=== PATIENT | male | born 1925 | race Caucasian/White ===

== ENCOUNTER → 2016-05-03 | Outpatient (CLI) | payer OTHER ==
--- NOTE | 2016-05-03 11:29 | MA ---
Diagnostic Digital Mammogram Right Breast With iCAD Analysis Clinical Indications: Postoperative follow up right breast cancer in an 89-year-old male. He has unde rgone resection in the anterior right breast with postbiopsy radiation. Technique: Standard cephalocaudal and mediolateral oblique projections of the right breast are obtai jasper. This examination is processed by the iCAD computer aided detection system. Comparison: November 13, 2015. Breast density: Type 2; 25 to 50%. Findings: CAD was reviewed. There has been decrease in the subareolar opacity consistent with surgica l excision. Skin thickening is seen which is presumably post radiation. No suspicious calcifications are identified. Impression: Benign post operative mammography, BI-RADS 2. Recommendation: Continued clinical follow up with mammographic screening as clinically directed. A verbal report was given to the patient. [facility] will send a result letter to the patient.
== END ==
LOC: FIMAGING 09:52
PROVIDERS: ATTEND Radiology Radiation Oncology
DX: Z08 Encounter for follow-up examination after completed treatment for malignant neoplasm (principal); Z85.3 Personal history of malignant neoplasm of breast
CPT/HCPCS: G0206

== ENCOUNTER 2016-12-31 19:25 | Inpatient (IN) | payer OTHER ==
[2016-12-31] MEDS ORDERED: ASPIRIN 325 MG TAB PO ONE (19:43)
[2016-12-31] MEDS ORDERED: ASPIRIN 81 MG CHEWABLE TAB ONE (19:46)
[2016-12-31 19:50] LABS: % IMMATURE GRANULYOCYTES 0.1 % (0.0-1.1); ABSOLUTE IMMATURE GRANULOCYTES 0.01 10^3/uL (0.00-0.10); ABSOLUTE NRBC COUNT 0.02 10^3/uL (0-0.01); ADD DIFF? NO; ADD MORPH? NO; ADD SCAN? NO; ATYPICAL LYMPHOCYTE FLAG 0 (0-99); FRAGMENT RBC FLAG 0 (0-99); HEMATOCRIT 41.3 % (40.0-51.0); HEMOGLOBIN 14.5 g/dL (13.7-17.5); LEFT SHIFT FLG 0 (0-99); LIPEMIA HEMOLYSIS FLAG 90 (0-99); MEAN CELL HEMOGLOBIN 33.6 pg (27.9-34.1); MEAN CELL HEMOGLOBIN CONCENTR. 35.1 g/dL (32.4-36.7); MEAN CELL VOLUME 95.8 fL (81.5-99.8); MEAN PLATELET VOLUME 9.2 fL (8.7-11.7); NRBC-AUTO% 0.3 % (0.0-0.2); PLATELET CLUMPS FLAG 0 (0-99); PLATELET COUNT 147 10^3/uL (150-400); RED BLOOD CELL COUNT 4.31 10^6/uL (4.40-6.38); RED CELL DISTRIBUTION WIDTH 13.7 % (11.5-15.2)
[2016-12-31] MEDS ORDERED: ASPIRIN 81 MG CHEWABLE TAB PO ONE (19:51)
[2016-12-31] MEDS ORDERED: LORazepam 2 MG/ML INJ IVP ONE (19:59)
--- NOTE | 2016-12-31 20:00 | CPEKG ---
Heart Rate: 78 RR Interval: 769 P-R Interval: 130 QRSD Interval: 116 QT Interval: 432 QTC Interval: 493 P [place]: 0 QRS [place]: 9 T Wave [place]: 243 EKG Severity - ABNORMAL ECG - EKG Impression: probable sinus rhythm EKG Impression: MULTIFORM VENTRICULAR PREMATURE COMPLEXES EKG Impression: NONSPECIFIC INTRAVENTRICULAR CONDUCTION DELAY EKG Impression: BORDERLINE R WAVE PROGRESSION, ANTERIOR LEADS EKG Impression: significant artifact Electronically Signed By: Meagan Talavera 31-Dec-2016 21:56:20
[2016-12-31 20:02] LABS: ANION GAP 18 mEq/L (8-16); CALCIUM 9.8 mg/dL (8.5-10.4); CARBON DIOXIDE 19 mEq/l (22-31); CHLORIDE 100 mEq/L (97-110); CREATININE 1.3 mg/dL (0.7-1.3); GLOMERULAR FILTRATION RATE 52; GLUCOSE 151 mg/dL (70-100); POTASSIUM 3.6 mEq/L (3.5-5.2); SODIUM 137 mEq/L (134-144)
--- NOTE | 2016-12-31 20:03 | EDPHY ---
H & P Time Seen by Provider: 12/31/16 19:46 HPI/ROS: CHIEF COMPLAINT: Chest pain HISTORY OF PRESENT ILLNESS: 89-year-old male with a history of hypertension presents with chest pain. Onset of severe left-sided chest pain at 2:00 p.m. today. The pain is constant and does not change with inspiration or with movement. Associated with shortness of breath. According to the family, he seemed asymptomatic until just prior to arrival. They were sitting at the dinner table celebrating his birthday, when he began appearing quite anxious and clutching his chest. He told them that he had severe chest pain and shortness of breath. The family brought him to the emergency department. No prior cardiac history. He has multiple recent stressors including the of his of 69 years and moving into assisted living 4 months ago. Family feels that this might be a factor in his presentation today. REVIEW OF SYSTEMS: Constitutional: No fever, no chills Eyes: No visual changes ENT: No sore throat Respiratory: No cough Gastrointestinal: No nausea, no vomiting, no abdominal pain Genitourinary: no dysuria Musculoskeletal: No leg pain or swelling Skin: No rash Neurological: No headache, no weakness Psychiatric: Situational depression Past Medical/Surgical History: Hypertension Shingles Social History: Smoking Status: Former smoker Physical Exam: General Appearance: Alert, quite anxious, appears in distress Eyes: Pupils equal and round, no conjunctival pallor or injection ENT, Mouth: Mucous membranes moist Neck: Normal inspection Respiratory: tachypneic, Lungs are clear to auscultation Cardiovascular: Regular rate and rhythm Gastrointestinal: Abdomen is soft and nontender Neurological: A&O, very hard of hearing, nonfocal exam Skin: Warm and dry, no rash Extremities: Nontender, no pedal edema Psychiatric: anxious Constitutional: Initial Vital Signs Heart Rate 81 12/31/16 19:28 Respiratory Rate 22 H 12/31/16 19:28 Blood Pressure 173/119 H 12/31/16 19:28 O2 Sat (%) 100 12/31/16 19:28 O2 Delivery Mode Room Air O2 (L/minute) 2 Allergies/Adverse Reactions: No Known Allergies Allergy (Verified 12/31/16 19:31) Home Medications: Medication Instructions Recorded Cephalexin [Keflex] 500 mg PO TID #21 cap 12/16/16 Amlodipine Besylate [Norvasc] 5 mg PO DAILY 12/31/16 Ipratropium/Albuterol [Duoneb (*)] 3 ml IH Q6 PRN 12/31/16 Sertraline HCl [Zoloft 25mg (*)] 25 mg PO DAILY 12/31/16 Medical Decision Making - Diagnostics EKG Interpretation: EKG interpreted by me reveals normal sinus rhythm, rate 78, poor R-wave progression, ST segment depression in leads V4 through V6. Imaging Results: Portable chest x-ray independently reviewed by me reveals a normal mediastinum, no infiltrate. ED Course/Re-evaluation: This patient presents with severe chest pain. Stat EKG reveals ST segment depression in leads V4 through V6. Aspirin 324 mg orally given. Stat chest x- ray is unremarkable. Morphine 2 mg IV given for chest pain. Because of significant associated anxiety, Ativan 0.5 mg IV given. He felt much better after these medications and chest pain nearly resolved. Initial troponin is normal and repeat EKG is unchanged. Concern for ACS. He will need further cardiac evaluation as an inpatient. The hospitalist service was consulted for admission. Differential Diagnosis: Differential diagnosis includes though it is not limited to pneumonia, pneumothorax, pulmonary embolism, aortic dissection, pericarditis, acute coronary syndrome. - Data Points Laboratory Results: Laboratory Results 12/31/16 19:40 01/01/17 04:14 Medications Given: Amlodipine Besylate (Norvasc) 5 mg PO DAILY [facility] Stop: 06/30/17 13:29 Last Admin: 01/01/17 13:41 Dose: 5 mg Aspirin (Aspirin) 81 mg PO DAILY [facility] Stop: 06/30/17 08:59 Last Admin: 01/01/17 09:51 Dose: 81 mg Atorvastatin Calcium (Lipitor) 40 mg PO DAILY [facility] Stop: 06/30/17 16:29 Last Admin: 01/01/17 17:42 Dose: 40 mg Cephalexin HCl (Keflex) 500 mg PO TID [facility] PRN Reason: Protocol Stop: 01/31/17 15:59 Last Admin: 01/01/17 15:54 Dose: 500 mg Nitroglycerin (Nitrostat) 0.4 mg SL Q5M PRN PRN Reason: Chest Pain Stop: 06/30/17 04:00 Last Admin: 01/01/17 04:06 Dose: 0.4 mg Sertraline HCl (Zoloft) 25 mg PO DAILY [facility] Stop: 06/30/17 13:29 Last Admin: 01/01/17 13:43 Dose: 25 mg Discontinued Medications Aspirin (Aspirin) 325 mg PO EDNOW ONE Stop: 12/31/16 19:44 Last Admin: 12/31/16 19:51 Dose: Not Given Aspirin (Aspirin) 324 mg PO EDNOW ONE Stop: 12/31/16 19:52 Last Admin: 12/31/16 19:52 Dose: 324 mg Lorazepam (Ativan Injection) 0.5 mg IVP EDNOW ONE Stop: 12/31/16 20:00 Last Admin: 12/31/16 20:03 Dose: 0.5 mg Morphine Sulfate (Morphine) 2 mg IVP EDNOW ONE Stop: 12/31/16 19:45 Last Admin: 12/31/16 19:48 Dose: 2 mg Potassium Chloride (Klor-Con) 20 meq PO ONCE ONE Stop: 01/01/17 15:15 Last Admin: 01/01/17 15:53 Dose: 20 meq Departure - Departure Disposition: [facility] Inpatient Acute Clinical Impression: Chest pain Qualifiers: Chest pain type: precordial pain Qualified Code(s): R07.2 - Precordial pain Condition: Fair
[2016-12-31 20:13] LABS: TROPONIN I 0.024 ng/mL (0.000-0.034)
[2016-12-31] MEDS ORDERED: ONDANSETRON DISINTEGRATING 4 MG TAB PO PRN (21:44)
[2016-12-31] MEDS ORDERED: ONDANSETRON 4 MG/2 ML VIAL IVP PRN (21:44)
[2016-12-31] MEDS ORDERED: ACETAMINOPHEN 325 MG TAB PO PRN (21:44)
--- NOTE | 2016-12-31 22:37 | GHP ---
[f rep st] HISTORY AND PHYSICAL DATE OF ADMISSION: 12/31/2016 HISTORY OF PRESENT ILLNESS: The patient is a very pleasant 89-year-old gentleman, who was at a day libertarian today when he developed some chest pain. When I speak with the patient further, it sounds like he was out for a walk today and he had some substernal chest pain that resolved with stopping. It might have radiated to his jaw. He did not get diaphoretic. He does not have a history of angina l type symptoms and has no known cardiac history other than hypertension. He then went to dinner to celebrate his birthday with his family and he was clutching his chest. He felt as if the room was cl osing in. He had a hard time seeing. He was brought outside. Ultimately, he then complained of fur ther chest pain that was severe upon arrival to the emergency department. When I speak to the patient, he denies fever, chills, cough. He describe the aforementioned chest pa in syndrome that is new for him. There was no coughing or difficulty swallowing. REVIEW OF SYSTEMS: Complete 10-point review of systems conducted and negative except as noted in the HPI. PAST MEDICAL HISTORY: 1. BPH. 2. Hypertension. 3. Osteoarthritis. 4. History of skin cancer. 5. Chronic osteoarthritis. 6. He has history of bilateral cataract surgery. FAMILY HISTORY: Parents . SOCIAL HISTORY: His 4 months ago. Walks with a cane. Rare alcohol. He did have a Margar tea today. ALLERGIES: No known drug allergies. MEDICATIONS: Amlodipine, simvastatin, tamsulosin. Waiting for further reconciliation. PHYSICAL EXAMINATION: VITAL SIGNS: Temp 36.9, blood pressure 173/119, pulse 81, breathing 20 times a minute, 100% on room air. GENERAL: No acute distress. HEENT: Sclerae anicteric. Oropharynx nick ar. Mucous membranes are moist. NECK: Supple without lymphadenopathy or JVD. LUNGS: Clear to aus cultation bilaterally. HEART: S1, S2 without murmurs. ABDOMEN: Soft, nontender, nondistended. LO WER EXTREMITIES: No edema. Calves nontender. SKIN: Multiple seborrheic keratoses, but no rash. N EUROLOGIC: Nonfocal. LABORATORY DATA: White count 7, hematocrit 41, platelets are 147,000. Sodium 137, potassium 3.6, ch loride 100, bicarb 19, he has chronically low bicarb, BUN 27, creatinine 1.3, glucose 151. Troponin is 0.24, this is the only troponin we have in the system. BNP is 903. Chest x-ray, interpreted by niranjan caceres, no acute cardiopulmonary disease. EKG, interpreted by me, shows sinus at 78, with normal axis and intervals. Appears to be a little bit of ST-elevation in V6, but it is isolated. There is nothing in V5 nor is there in I or L. There are no reciprocal changes. He has a bit of a wavy baseline. In general, it is a nonischemic EKG. I have discussed the case Dr. Dayana Quintanilla. ASSESSMENT AND PLAN: An 89-year-old gentleman who presents with chest pain, somewhat concerning for an anginal story. 1. Chest pain. I will cycle troponins, perform stress test in the morning. His indeterminate tropo russel is noted. His EKG is a little bit abnormal at baseline and with poor quality, so I am going to r epeat it now. 2. Hypertension. The patient is markedly hypertensive today. We will continue his medications. I will hold on p.r.n.'s at this time. 3. Hyperlipidemia. I will check a lipid panel in the morning. 4. Prophylaxis. Pharmacologic prophylaxis indicated if in the hospital longer than 24 hours. 5. Disposition. Observation status. Stress test tomorrow. /[id number]/MODL
--- NOTE | 2017-01-01 03:49 | CPEKG ---
Heart Rate: 73 RR Interval: 822 P-R Interval: 228 QRSD Interval: 120 QT Interval: 432 QTC Interval: 476 P [place]: 56 QRS [place]: 18 T Wave [place]: 183 EKG Severity - ABNORMAL ECG - EKG Impression: SINUS RHYTHM EKG Impression: FIRST DEGREE AV BLOCK EKG Impression: NONSPECIFIC INTRAVENTRICULAR CONDUCTION DELAY EKG Impression: ANTERIOR INFARCT, OLD Electronically Signed By: Austin Han 02-Jan-2017 19:04:22
[2017-01-01] MEDS ORDERED: NITROGLYCERIN 0.4 MG BTL SL PRN (04:01)
[2017-01-01 05:25] LABS: ANION GAP 10 mEq/L (8-16); CALCIUM 8.4 mg/dL (8.5-10.4); CARBON DIOXIDE 25 mEq/l (22-31); CHLORIDE 104 mEq/L (97-110); CHOLESTEROL 138 mg/dL (140-220); CHOLESTEROL/HDL RATIO 3.63 RATIO (1.00-4.97); CREATININE 1.1 mg/dL (0.7-1.3); GLOMERULAR FILTRATION RATE > 60; GLUCOSE 120 mg/dL (70-100); HIGH DENSITY LIPOPROTEIN 38 mg/dL (40-65); LDL/HDL RATIO 2.39 RATIO (1.00-3.64); LOW DENSITY LIPOPROTEIN 91 mg/dL (80-100); NON-HIGH DENSITY LIPOPROTEIN 100 mg/dL (90-129); POTASSIUM 3.3 mEq/L (3.5-5.2); SODIUM 139 mEq/L (134-144); TRIGLYCERIDE 45 mg/dL (40-150); VERY LOW DENSITY LIPOPROTEINS 9 mg/dL (8-25)
[2017-01-01] MEDS: ASPIRIN 81 MG CHEWABLE TAB PO SCH (09:51)
[2017-01-01] MEDS ORDERED: REGADENOSON 0.4 MG/5 ML SYR IVP ONE (10:20)
--- NOTE | 2017-01-01 13:08 | CPR ---
[f rep st] NONINVASIVE CARDIAC PROCEDURE REPORT PROCEDURE: Adenosine Cardiolite EKG portion. INDICATION: This is an 89-year-old patient who came in with chest pain with intermediate probability of coronary artery disease and, hence, it was decided to perform adenosine Cardiolite study. PROCEDURE: The patient had baseline EKG, which measured left axis deviation but otherwise normal. N onspecific T-wave changes were noted. Adenosine was given. No changes noted with adenosine. The pa tient's blood pressure remained stable between 120 to 140 over 70 to 80 mmHg. The patient remained a symptomatic through the procedure. CONCLUSION: Nondiagnostic EKG part of the adenosine Cardiolite study. /[id number]/MODL
[2017-01-01] MEDS ORDERED: IPRATROPIUM/ALBUTEROL 3 ML DEYVIAL IH PRN (13:30)
[2017-01-01] MEDS: amLODIPine BESYLATE 5 MG TAB PO SCH (13:41)
[2017-01-01] MEDS: SERTRALINE HCL 25 MG TAB PO SCH (13:43)
[2017-01-01] MEDS ORDERED: POTASSIUM CL 20 MEQ TAB PO ONE (15:14)
--- NOTE | 2017-01-01 15:36 | ASMTCMCOM ---
CM Note CM Note Notes: Reviewed chart re: d/c poc, pt's progress. Pt admitted w/ severe CP; underwent a nuc stress test today, results are pending. Pt lives alone, recently lost his (approx 4 mos ago). Anticipate pt will likely discharge home independently when stable. CM will cont to follow for potential needs. Date Signed: 01/01/2017 03:36 PM Electronically Signed By:Rocio Herny RN
[2017-01-01] MEDS: CEPHALEXIN 500 MG CAP PO SCH ×2 (15:54→22:28)
--- NOTE | 2017-01-01 16:10 | HOSPPROG ---
Hospitalist Progress Note Assessment/Plan: Chest pain - Trops neg x3, no further chest pain. Nuc stress abnormal with decreased uptake at septal wall, will need resting study in am. Cont ASA, add statin for now. LDL 91. Hypertension - Adequate control on Amlodipine, cont current regimen. Full code Dispo - change to inpt as will need further evaluation / cardiac risk stratification Subjective: Pt feels well. No more CP. He thinks his pain was caused by drinking a jackson. Denies SOB, cough or fevers. Resting comfortably. Objective: Vital Signs Temp Pulse Resp BP Pulse Ox 36.9 C 75 16 157/77 H 93 01/01/17 15:29 01/01/17 15:29 01/01/17 15:29 01/01/17 15:29 01/01/17 15:29 Laboratory Results 01/01/17 04:14 12/31/16 01/01/17 01/02/17 05:59 05:59 05:59 Intake Total 100 240 Output Total 400 725 Balance -300 -485 - Physical Exam Constitutional: no apparent distress Eyes: PERRL Ears, Nose, Mouth, Throat: moist mucous membranes Cardiovascular: regular rate and rhythym Respiratory: no respiratory distress, clear to auscultation Gastrointestinal: normoactive bowel sounds, soft, non-tender abdomen Skin: warm Musculoskeletal: full muscle strength Neurologic: AAOx3 Psychiatric: interacting appropriately ICD10 Worksheet Patient Problems: Problems Problem Status Onset Chest pain Acute [place] (acute kidney injury) Acute Colitis Acute Dehydration Acute Urinary retention Acute Urinary tract infection Acute
--- NOTE | 2017-01-01 16:14 | ASMTCMCOM ---
CM Note CM Note Notes: Amendment to 01/01/17 note - Pt lives at [facility] in [place]. Date Signed: 01/01/2017 04:13 PM Electronically Signed By:Rocio Henry RN
[2017-01-01] MEDS: ATORVASTATIN CALCIUM 40 MG TAB PO SCH (17:42)
[2017-01-02 04:08] LABS: POTASSIUM 3.3 mEq/L (3.5-5.2)
[2017-01-02] MEDS ORDERED: POTASSIUM CL 20 MEQ TAB PO ONE (08:48)
[2017-01-02] MEDS: ATORVASTATIN CALCIUM 40 MG TAB PO SCH (08:55)
[2017-01-02] MEDS: amLODIPine BESYLATE 5 MG TAB PO SCH (08:55)
[2017-01-02] MEDS: SERTRALINE HCL 25 MG TAB PO SCH (08:55)
[2017-01-02] MEDS: ASPIRIN 81 MG CHEWABLE TAB PO SCH (08:55)
[2017-01-02] MEDS: CEPHALEXIN 500 MG CAP PO SCH ×2 (08:55→18:11)
[2017-01-02 11:26] VITALS: O2SAT 96
--- NOTE | 2017-01-02 13:44 | ASMTCMCOM ---
CM Note CM Note Notes: Chart reviewed. Resting portion for stress test today, Awaiting MD to judith spoke with son Nixon who reports his father is in the assisted living section at [facility] where pt will return too. He has no current therapy services needs at this time. Anticipate dc back to [facility] with no new needs identified. CM available to follow for any needs that arise. Date Signed: 01/02/2017 01:43 PM Electronically Signed By:Karmen Hurtado RN
[2017-01-02 15:57] VITALS: BP 137/74; PULSE 78; RESP 13; TEMP 98.3
--- NOTE | 2017-01-03 07:56 | CPEKG ---
Heart Rate: 70 RR Interval: 857 QRSD Interval: 114 QT Interval: 428 QTC Interval: 462 QRS [place]: 23 T Wave [place]: 126 EKG Severity - ABNORMAL ECG - EKG Impression: SINUS RHYTHM EKG Impression: NONSPECIFIC INTRAVENTRICULAR CONDUCTION DELAY EKG Impression: CONSIDER ANTERIOR INFARCT EKG Impression: MINIMAL ST DEPRESSION, ANTEROLATERAL LEADS Electronically Signed By: Austin Han 03-Jan-2017 08:48:07
--- NOTE | 2017-01-03 12:48 | GDS ---
[f rep st] DISCHARGE SUMMARY DISCHARGE DIAGNOSES: Include: 1. Chest pain. 2. Hypertension. 3. Reduced systolic function, new diagnosis. 4. Benign prostatic hypertrophy. 5. Osteoarthritis. 6. History of skin cancer. 7. Bilateral cataract surgery. HISTORY OF PRESENT ILLNESS: This is an 89-year-old male with a history of hypertension, admitted on 12/31/2016, with complaints of chest pain. For details of initial presentation please see the history and physical dated 12/31/2016. CONSULTATIVE SERVICES ON THIS PATIENT: None. PROCEDURES ON THIS PATIENT: On 01/01/2017, patient underwent stress imaging which showed abnormal up take in the septal wall. He was taken for rest imaging on 01/02/2017, which showed no inducible ische roscoe but a reduced ejection fraction without segmental wall motion abnormalities. EF is estimated at 4 4%. HOSPITAL COURSE: By issue: 1. Chest pain. Patient had both stress and rest imaging confirming no evidence for ischemia. Patient will be discharged with outpatient cardiology follow up. 2. Reduced left ventricular systolic function. Imaging and case were reviewed with Cardiology. Nash adams will be seen by [facility] on January 13, 2017, for his first evaluation with the diagnosis of reduced systolic function. The patient is clinically stable and euvolemic at the time of disposition. No new medications beyond a baby aspirin have been initiated during this hospital stay. He will be s een by Cardiology and up titrated on appropriate medications for systolic heart failure at that time. 3. Hypertension. He will be continued on his single agent, Norvasc. Blood pressures have remained we ll controlled during this hospital stay. MEDICATIONS AT THE TIME OF DISPOSITION: Please reference med rec printed on 01/02/2017. FOLLOWUP APPOINTMENTS: With [facility] on 01/13/2017, for his first evaluation of reduced systoli c heart function. PENDING STUDIES: At the time of this dictation are none. TIME SPENT: I spent greater than 30 minutes in the planning and coordination of this discharge. /[id number]/MODL
== END 2017-01-02 18:18 | disposition home or self-care (01) | DRG 293 ==
LOC: F2W 22:44 → OBSVTOIN 01-01 14:27
PROVIDERS: ADMIT Internal Medicine; ATTEND Internal Medicine
DX: I11.0 Hypertensive heart disease with heart failure (principal); I50.20 Unspecified systolic (congestive) heart failure; Z87.891 Personal history of nicotine dependence; M19.90 Unspecified osteoarthritis, unspecified site; N40.0 Benign prostatic hyperplasia without lower urinary tract symptoms
CPT/HCPCS: 96374; 97161-GP; A9500; G0378; G8978-GP-CI; G8979-GP-CI; J2060; J2785

== ENCOUNTER → 2017-02-06 | Outpatient (CLI) | payer OTHER | LOC: BHFA 09:15 | PROVIDERS: ATTEND Internal Medicine Cardiovascular Disease | DX: I42.9 Cardiomyopathy, unspecified (principal) | CPT/HCPCS: 93306-PO ==